=== PATIENT | female | born 1925 | race Caucasian/White ===

== ENCOUNTER 2016-03-15 09:44 | Outpatient (CLI) | payer MEDICARE, OTHER ==
[2016-03-15 10:27] LABS: #Basophils 0.1 thou/uL (0.0-0.2); #Eosinphils 0.1 thou/uL (0.0-0.7); #Lymphocytes 1.8 thou/uL (1.20-3.40); #Monocytes 0.5 thou/uL (0.11-0.59); #Neutrophils 3.8 thou/uL (1.40-6.50); %Basophils 1.4 % (0.0-1.0); %Eosinophils 0.9 % (0.0-10.0); %Lymphocytes 28.3 % (21.0-51.0); %Monocytes 8.4 % (0.0-10.0); Hematocrit 46.3 % (36.0-47.0); Mean Platelet Volume 9.1 fL (7.4-10.4); Red Blood Cell (RBC) Count 4.84 mill/uL (4.20-5.40); White Blood Cell (WBC) Count 6.2 thou/uL (4.8-10.8)
[2016-03-15 10:28] LABS: ALT (SGPT) 11 U/L (0-55); AST (SGOT) 13 U/L (5-34); Alkaline Phosphatase 63 U/L (40-150); Anion Gap 13 mmol/L (10-20); BUN (Urea Nitrogen) 20 mg/dL (9.8-20.1); Bilirubin, Direct 0.3 mg/dL (0.1-0.3); Bilirubin, Total 0.7 mg/dL (0.2-1.2); Calc. Creatinine Clearance 0 mL/min (70-130); Calcium 9.9 mg/dL (7.8-10.44); Carbon Dioxide 30 mmol/L (23-31); Chloride 103 mmol/L (98-107); Estimated GFR-MDRD 75; LDL Cholesterol, Calculated 131 mg/dL; Protein, Total 6.8 g/dL (5.8-8.1)
[2016-03-15 10:35] LABS: Hemoglobin A1c 5.8 % (4.0-6.0)
[2016-03-15 14:42] LABS: Blood, Urine Negative (Negative); Glucose, Urine (Dipstick) Negative (Negative); Ketone, Urine Trace mg/dL (Negative); Nitrite Positive (Negative); Protein, Urine (Dipstick) Trace mg/dL (Neg-Trace)
[2016-03-15 14:48] LABS: Bilirubin Negative (Negative)
[2016-03-15 15:23] LABS: Bacteria/HPF 2+ HPF (None Seen); RBC/HPF None Seen HPF (0-3); WBC/HPF 21-50 HPF (0-3)
== END 2016-03-15 09:45 ==
LOC: NAVSJIPCSP 09:44
PROVIDERS: ATTEND Family Medicine
DX: R29.6 Repeated falls (principal); R30.0 Dysuria; Z79.899 Other long term (current) drug therapy
CPT/HCPCS: 36415; 80048; 80061; 80076; 81003; 81015; 83036; 84443; 85025

== ENCOUNTER 2016-11-01 16:54 | Emergency (ER) | payer MEDICARE, OTHER ==
[2016-11-01] MEDS ORDERED: Dexamethasone 20 MG/5 ML VIAL ONE (17:29)
[2016-11-01] MEDS ORDERED: Dexamethasone 4 mg/ml Vial ONE (17:29)
[2016-11-01] MEDS ORDERED: hydrOXYzine 25 MG TAB ONE (17:49)
== END 2016-11-01 18:20 | disposition home or self-care (01) ==
LOC: NAV ERS 16:54
DX: T63.421A Toxic effect of venom of ants, accidental (unintentional), initial encounter (principal); I10 Essential (primary) hypertension; E03.9 Hypothyroidism, unspecified; M10.9 Gout, unspecified; M19.90 Unspecified osteoarthritis, unspecified site; Z79.899 Other long term (current) drug therapy
CPT/HCPCS: 96374; J1100